=== PATIENT | female | born 1955 | race Caucasian/White ===

== ENCOUNTER 2018-11-17 11:37 | Inpatient (IN) | payer BC, OTHER ==
[~2018-11-17] VITALS: Ht 162.6 cm; Wt 73.7 kg
[2018-11-17 11:45] VITALS: BP 128/85
[2018-11-17 11:51] LABS: BASOPHILS 0.6 % (0.0-2.0); EOSINOPHILS 0.8 % (0.0-3.0); HEMATOCRIT 39.5 % (37.0-47.0); HEMOGLOBIN 13.7 gm/dL (12.0-15.0); LYMPHOCYTES 44.6 % (24.0-44.0); MCH 30.6 pg (26.0-34.0); MCHC 34.6 g/dL (28.0-37.0); MCV 88.3 fL (80.0-100.0); MONOCYTES 8.2 % (1.0-8.0); PLATELET COUNT 275 thou/uL (150-400); POLYS 45.8 % (36.0-66.0); RBC 4.47 mil/uL (4.20-5.00); RDW 13.1 % (10.5-14.5); WBC 6.6 thou/uL (4.0-11.0)
[2018-11-17 12:02] LABS: ANION GAP 7 mmol/L (7-16); BUN 22 mg/dL (7-18); CHLORIDE 100 mmol/L (98-107); CO2 30 mmol/L (21-32); CREATININE 0.9 mg/dL (0.6-1.0); GLUCOSE 98 mg/dL (74-106); SODIUM 137 mmol/L (136-145)
[2018-11-17 12:13] LABS: ALBUMIN 4.3 g/dL (3.4-5.0); SGOT 28 U/L (15-37); SGPT 44 U/L (30-65); TOTAL BILIRUBIN 0.4 mg/dL (<0.1-1.0); TOTAL PROTEIN 7.9 g/dL (6.4-8.2); TROPONIN-I <0.06 ng/mL (<0.06)
[2018-11-17] MEDS ORDERED: PRAVACHOL20 MG PO (13:23)
[2018-11-17 15:08] VITALS: BP 129/81
[2018-11-17 15:29] VITALS: BP 129/74
--- NOTE | 2018-11-17 16:20 | NUR ---
PT ADMITED FROM ER. ADMISSION HX AND ASSESSMENT COMPLETED. PT ALERT AND ORIENTED. VSS. PT ORIENTED TO THE ROOM AND THE CALL LIGHT SYSTEM. STEADY ON HER FEET. SR ON TELE. WILL CONTINUE TO MONITOR.
[2018-11-17 18:18] VITALS: BP 129/74
[2018-11-17 20:25] VITALS: BP 107/58
--- NOTE | 2018-11-18 03:21 | NUR ---
ASSUMED PT CARE AT 1900. PT A/OX4, VITALS SIGNS STABLE, ASSESSMENT CHERTED. NO COMPLAINTS OF PAIN, CHEST PAIN OR SOB. NO ACUTE CHANGES, RESTED WELL THROUGH THE NIGHT. PROGRESSING TOWARD PLAN OF CARE. WILL CONTINUE TO MONITOR.
[2018-11-18 04:11] VITALS: BP 104/64
[2018-11-18 06:03] LABS: CHOLESTEROL 254 mg/dL (<200); HDL CHOLESTEROL 82 mg/dL (>40); LDL CHOLESTEROL 162 mg/dL (<100); TC:HDL 3.1 Ratio (Not establshd); TRIGLYCERIDE 53 mg/dL (<150); VLDL 11 mg/dL (<40)
[2018-11-18 06:44] LABS: TROPONIN-I <0.06 ng/mL (<0.06)
[2018-11-18 06:45] LABS: SERUM ASSESSMENT Clear
[2018-11-18 08:13] VITALS: BP 109/65
--- NOTE | 2018-11-18 09:23 | EKG ---
[address] [employer] [place] [address] ELECTROCARDIOGRAM REPORT Name: LIZETH SAMANO Cyril Room #: 211-P ADM IN M.R.#: [id number] ������������������ Admission: 11/17/18 ������������������ Attend Phys: Rl Yu Discharge: ������������������ Date of : 55 Report #: [id number] ����������������������������������������������������������������� [id number] THIS REPORT FOR: //name// [facility] ED Test Date: 2018-11-17 Test Time: 11:43:38 Pat Name: LIZETH SAMANO Department: Room: 211 Gender: F Emergency Department Physician: BRIDGET : [id number] Requested By: Order Number: [id number] MD: Hector Richards Measurements Intervals [place] Rate: 73 P: 67 WI: 161 QRS: 62 QRSD: 91 T: 57 QT: 373 QTc: 411 Interpretive Statements Sinus rhythm No significant abnormality No previous ECG available for comparison Electronically Signed On 11-18-2018 9:23:07 CDT by Hector Richards [email or web address] ��������������������������������������������� <ELECTRONICALLY SIGNED> ���������������������������������������� By: Hector Richards MD, [facility] ��������������������������������������������� 11/18/18 0923 1143 1143 Hector Richards MD, FACC /EPI
[2018-11-18 11:47] VITALS: BP 112/63
[2018-11-18 16:26] VITALS: BP 112/63
[2018-11-18 16:33] VITALS: BP 114/57
--- NOTE | 2018-11-18 16:53 | NUR ---
ASSESSMENT CHARTED. PT ALERT AND ORIENTED. DENIED HAVING CHEST PAIN. VSS. HAD NUC STRESS TEST THIS AM. ORDERS GIVEN TO DISCHARGE PT TO HOME. DISCHARGE INSTRUCTIONS GIVEN TO PT. PT VERBERLIZED UNDERSTANDING.
== END 2018-11-18 17:01 | disposition home or self-care (01) | DRG 313 ==
LOC: ER 11:37 → EROBS 13:37 → 2N 15:29
PROVIDERS: Emergency Medicine; ADMIT Hospitalist
DX: R07.89 Other chest pain (principal); E78.00 Pure hypercholesterolemia, unspecified; Z82.49 Family history of ischemic heart disease and other diseases of the circulatory system; Z88.0 Allergy status to penicillin; Z90.89 Acquired absence of other organs; Z98.891 History of uterine scar from previous surgery; Z79.899 Other long term (current) drug therapy
CPT/HCPCS: 10081